=== PATIENT | female | born 1995 | race American Indian/Alaskan Native ===

== ENCOUNTER 2016-12-22 13:12 | Emergency (ER) | payer SELFPAY ==
[2016-12-22 14:00] VITALS: BP 127/83
--- NOTE | 2016-12-22 16:35 | Emergency Department Report ---
ED General Adult HPI - General Chief complaint: Back Pain/Injury Stated complaint: BACK PAIN Time Seen by Provider: 12/22/16 15:59 Source: patient Mode of arrival: Ambulatory Limitations: No Limitations - History of Present Illness Initial comments: Patient comes into the ER today with complaints of lower back pain for the past 2 weeks. 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 Patient states she's been working the stop for approximately one month and thinks that it has something do with her pain in her back. Patient describes the pain as a tight and burning sensation from time to time. Patient denies any obvious single moment of injury. Patient denies any loss of bowel control, urinary control. Patient denies any abdominal pain. -: week(s) (2) - Related Data Previous Rx's Medication Instructions Recorded Last Taken Type Acetaminophen/Codeine 1 tab PO Q6H PRN #15 tab 08/31/14 Unknown Rx [Acetaminophen-Codeine #3 TAB] Azithromycin [Zithromax] 1 gm PO ONCE #1 packet 08/31/14 Unknown Rx Valacyclovir HCl [Valtrex] 1,000 mg PO BID #20 tablet 08/31/14 Unknown Rx metroNIDAZOLE [Flagyl] 500 mg PO TID #30 tablet 08/31/14 Unknown Rx Cyclobenzaprine HCl [Flexeril 5 MG 5 mg PO TID PRN #18 tab 12/22/16 Unknown Rx TAB] Naproxen [Naprosyn TAB] 500 mg PO BID #20 tablet 12/22/16 Unknown Rx traMADol [Ultram] 50 mg PO Q6HR PRN #20 tablet 12/22/16 Unknown Rx Allergies Allergy/AdvReac Type Severity Reaction Status Date / Time No Known Allergies Allergy Verified 08/31/14 12:18 ED Review of Systems ROS: Stated complaint: BACK PAIN Other details as noted in HPI Constitutional: denies: chills, fever Eyes: denies: eye pain, eye discharge, vision change ENT: denies: ear pain, throat pain Respiratory: denies: cough, shortness of breath, wheezing Cardiovascular: denies: chest pain, palpitations Endocrine: no symptoms reported Gastrointestinal: denies: abdominal pain, nausea, diarrhea Genitourinary: denies: urgency, dysuria, discharge Musculoskeletal: back pain, myalgia. denies: joint swelling, arthralgia Skin: denies: rash, lesions Neurological: denies: headache, weakness, paresthesias Psychiatric: denies: anxiety, depression Hematological/Lymphatic: denies: easy bleeding, easy bruising ED Past Medical Hx - Past Medical History Previous Medical History?: No - Surgical History Past Surgical History?: No - Social History Smoking Status: Never Smoker Substance Use Type: None - Medications Home Medications: Home Medications Medication Instructions Recorded Confirmed Last Taken Type Acetaminophen/Codeine 1 tab PO Q6H PRN #15 tab 08/31/14 Unknown Rx [Acetaminophen-Codeine #3 TAB] Azithromycin [Zithromax] 1 gm PO ONCE #1 packet 08/31/14 Unknown Rx Valacyclovir HCl [Valtrex] 1,000 mg PO BID #20 tablet 08/31/14 Unknown Rx metroNIDAZOLE [Flagyl] 500 mg PO TID #30 tablet 08/31/14 Unknown Rx Cyclobenzaprine HCl [Flexeril 5 MG 5 mg PO TID PRN #18 tab 12/22/16 Unknown Rx TAB] Naproxen [Naprosyn TAB] 500 mg PO BID #20 tablet 12/22/16 Unknown Rx traMADol [Ultram] 50 mg PO Q6HR PRN #20 tablet 12/22/16 Unknown Rx ED Physical Exam - General Limitations: No Limitations General appearance: alert, in no apparent distress - Head Head exam: Present: atraumatic, normocephalic - Eye Eye exam: Present: normal appearance - ENT ENT exam: Present: mucous membranes moist - Neck Neck exam: Present: normal inspection - Respiratory Respiratory exam: Present: normal lung sounds bilaterally. Absent: respiratory distress - Cardiovascular Cardiovascular Exam: Present: regular rate, normal rhythm. Absent: systolic murmur, diastolic murmur, rubs, gallop - GI/Abdominal GI/Abdominal exam: Present: soft, normal bowel sounds - Extremities Exam Extremities exam: Present: normal inspection - Back Exam Back exam: Present: normal inspection, tenderness, muscle spasm (bilateral lower lumbar muscle tightness), paraspinal tenderness. Absent: full ROM ( demented lumbar flexion secondary to pain), CVA tenderness (R), CVA tenderness ( L), vertebral tenderness - Neurological Exam Neurological exam: Present: alert, oriented X3, CN II-XII intact, normal gait, reflexes normal. Absent: motor sensory deficit - Psychiatric Psychiatric exam: Present: normal affect, normal mood - Skin Skin exam: Present: warm, dry, intact, normal color. Absent: rash ED Course Vital Signs 12/22/16 13:57 Temperature 98.7 F Pulse Rate 69 Respiratory 17 Rate Blood Pressure 127/83 O2 Sat by Pulse 100 Oximetry ED Medical Decision Making - Medical Decision Making Patient is nontoxic and hemodynamically stable. Examination and history is more consistent with muscular etiology to patient's back pain. I'll start patient on a course of medications to help relieve her symptoms but have also encouraged patient to alter her work habits. I will refer patient to orthopedics for further evaluation. Patient is in agreement treatment plan patient is stable for discharge. Critical care attestation.: If time is entered above; I have spent that time in minutes in the direct care of this critically ill patient, excluding procedure time. ED Disposition Clinical Impression: Low back pain, Lumbar spine strain Disposition: TO HOME OR SELFCARE Is pt being admited?: No Does the pt Need Aspirin: No Condition: Good Instructions: Low Back Strain (ED) Prescriptions: Cyclobenzaprine HCl [Flexeril 5 MG TAB] 5 mg PO TID PRN #18 tab PRN Reason: Muscle Spasm Naproxen [Naprosyn TAB] 500 mg PO BID #20 tablet traMADol [Ultram] 50 mg PO Q6HR PRN #20 tablet PRN Reason: Pain Referrals: PRIMARY CARE, [Primary Care Provider] - 3-5 Days TAYLOR MONTEJO MD [Staff Physician] - 3-5 Days Forms: Work/School Release Form(ED) Time of Disposition: 16:39
== END 2016-12-22 17:00 | disposition home or self-care (01) ==
LOC: ED 13:12
DX: S39.012A Strain of muscle, fascia and tendon of lower back, initial encounter (principal); X50.0XXA Overexertion from strenuous movement or load, initial encounter; X50.9XXA Other and unspecified overexertion or strenuous movements or postures, initial encounter; Y93.89 Activity, other specified; Y99.8 Other external cause status; Y92.59 Other trade areas as the place of occurrence of the external cause
CPT/HCPCS: 99282

== ENCOUNTER 2017-01-01 15:51 | Emergency (ER) | payer SELFPAY ==
[2017-01-01 21:18] LABS: Bacteria,Urine 1+ /HPF (Negative); Bilirubin,Urine NEG (Negative); Blood,Urine NEG (Negative); Ketones,Urine NEG (Negative); Leukocyte Esterase,Urine MOD (Negative); Mucus,Urine FEW /HPF; Nitrite,Urine NEG (Negative); Protein,Urine <15 mg/dL mg/dL (Negative); Urobilinogen,Urine < 2.0 mg/dL (<2.0)
[2017-01-01] MEDS ORDERED: NORCO 5/325 PO ONE (21:26)
[2017-01-01] MEDS ORDERED: TORADOL IM ONE (21:26)
[2017-01-01] MEDS ORDERED: FLEXERIL PO ONE (21:26)
--- NOTE | 2017-01-01 22:13 | Emergency Department Report ---
Entered by LETI GOMEZ, acting as scribe for TIA MARES PA. ED Back Pain/Injury HPI - General Chief Complaint: Back Pain/Injury Stated Complaint: BACK AND SHOULDER PAIN Time Seen by Provider: 01/01/17 20:18 Source: patient Limitations: No Limitations - History of Present Illness Initial Comments: 21 year old female with no significant PMHx presents to the ED with c/o lower back pain for about 2 weeks. 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 She took prescribed medication of flexeril and tramadol with minimal relief. Patient denies dsyruia, hematuria, frequency, urgency, , vaginal discharge, vaginal bleeding, no MVA accident, injury or trauma. NKDA. patient states she needs a work excuse and more days off work. MD Complaint: back pain, other (upper extermeity pain) Onset/Timin -: week(s) Similar Symptoms Previously: Yes Place: work Radiation: none Severity: mild Severity scale (0 -10): 5 Quality: sharp, aching Consistency: constant Improves With: none Worsens With: medication (Flexeril and tramadol with no relief) Context: while lifting (work related) Associated Symptoms: denies: weakness, chest pain, numbness, difficulty walking , cough, difficulty urinating, incontinence, fever/chills, constipation, headaches, abdominal pain, nausea/vomiting, rash, shortness of breath, syncope Treatments Prior to Arrival: other medications - Related Data Previous Rx's Medication Instructions Recorded Last Taken Type Acetaminophen/Codeine 1 tab PO Q6H PRN #15 tab 08/31/14 Unknown Rx [Acetaminophen-Codeine #3 TAB] Azithromycin [Zithromax] 1 gm PO ONCE #1 packet 08/31/14 Unknown Rx Valacyclovir HCl [Valtrex] 1,000 mg PO BID #20 tablet 08/31/14 Unknown Rx metroNIDAZOLE [Flagyl] 500 mg PO TID #30 tablet 08/31/14 Unknown Rx Cyclobenzaprine HCl [Flexeril 5 MG 5 mg PO TID PRN #18 tab 12/22/16 Unknown Rx TAB] Naproxen [Naprosyn TAB] 500 mg PO BID #20 tablet 12/22/16 Unknown Rx traMADol [Ultram] 50 mg PO Q6HR PRN #20 tablet 12/22/16 Unknown Rx methOCARBAMOL [Robaxin TAB] 500 mg PO BID #20 tab 01/01/17 Unknown Rx Allergies Allergy/AdvReac Type Severity Reaction Status Date / Time No Known Allergies Allergy Verified 08/31/14 12:18 ED Review of Systems Comment: All other systems reviewed and negative Constitutional: denies: chills, fever Eyes: denies: eye pain, eye discharge, vision change ENT: denies: ear pain, throat pain Respiratory: no symptoms reported Cardiovascular: denies: chest pain, palpitations Endocrine: denies: excessive sweating Gastrointestinal: denies: abdominal pain, nausea, vomiting, diarrhea, constipation Genitourinary: denies: urgency, dysuria, frequency, hematuria, discharge, abnormal menses Musculoskeletal: back pain. denies: joint swelling, arthralgia Skin: denies: rash, lesions Neurological: denies: headache, weakness, paresthesias Psychiatric: denies: anxiety, depression Hematological/Lymphatic: denies: easy bleeding ED Past Medical Hx - Past Medical History Previous Medical History?: Yes Additional medical history: PIH - Surgical History Past Surgical History?: No - Social History Smoking Status: Never Smoker Substance Use Type: None - Medications Home Medications: Home Medications Medication Instructions Recorded Confirmed Last Taken Type Acetaminophen/Codeine 1 tab PO Q6H PRN #15 tab 08/31/14 Unknown Rx [Acetaminophen-Codeine #3 TAB] Azithromycin [Zithromax] 1 gm PO ONCE #1 packet 08/31/14 Unknown Rx Valacyclovir HCl [Valtrex] 1,000 mg PO BID #20 tablet 08/31/14 Unknown Rx metroNIDAZOLE [Flagyl] 500 mg PO TID #30 tablet 08/31/14 Unknown Rx Cyclobenzaprine HCl [Flexeril 5 MG 5 mg PO TID PRN #18 tab 12/22/16 Unknown Rx TAB] Naproxen [Naprosyn TAB] 500 mg PO BID #20 tablet 12/22/16 Unknown Rx traMADol [Ultram] 50 mg PO Q6HR PRN #20 tablet 12/22/16 Unknown Rx methOCARBAMOL [Robaxin TAB] 500 mg PO BID #20 tab 01/01/17 Unknown Rx ED Physical Exam - General Limitations: No Limitations General appearance: alert, in no apparent distress - Head Head exam: Present: atraumatic, normocephalic - Eye Eye exam: Present: normal appearance, PERRL, EOMI Pupils: Present: normal accommodation. Absent: irregular - ENT ENT exam: Present: normal orophraynx, mucous membranes moist - Neck Neck exam: Present: normal inspection, full ROM. Absent: tenderness, meningismus - Respiratory Respiratory exam: Present: normal lung sounds bilaterally. Absent: respiratory distress - Cardiovascular Cardiovascular Exam: Present: regular rate, normal rhythm. Absent: systolic murmur, diastolic murmur, rubs, gallop - GI/Abdominal GI/Abdominal exam: Present: soft, normal bowel sounds. Absent: distended, tenderness, guarding, rigid, diminished bowel sounds - Speculum exam: Absent: erythema, vaginal discharge, vaginal bleeding - Extremities Exam Extremities exam: Present: normal inspection, full ROM, normal capillary refill. Absent: tenderness, pedal edema, joint swelling - Back Exam Back exam: Present: normal inspection, full ROM. Absent: tenderness, paraspinal tenderness, vertebral tenderness - Neurological Exam Neurological exam: Present: alert, oriented X3, normal gait, reflexes normal (+ 2 bilateral patellar reflexes) - Psychiatric Psychiatric exam: Present: normal affect, normal mood - Skin Skin exam: Present: warm, dry, intact, normal color. Absent: rash ED Course Vital Signs 01/01/17 17:10 Temperature 98.6 F Pulse Rate 90 Respiratory 18 Rate Blood Pressure 112/77 O2 Sat by Pulse 100 Oximetry ED Medical Decision Making - Medical Decision Making 21 year old female presents to ED with lower back pain. patient states she would like more days off work and another work excuse. patient has no significant tenderness on exam that would require imaging studies. patient has no positive UTI and negative preg test. patient is stable, neurologically intact and in no acute distress. patient is ambulatory. ED Disposition Clinical Impression: Low back pain Qualifiers: Chronicity: acute Back pain laterality: bilateral Sciatica presence: without sciatica Qualified Code(s): M54.5 - Low back pain Disposition: - TO HOME OR SELFCARE Is pt being admited?: No Does the pt Need Aspirin: No Condition: Stable Prescriptions: methOCARBAMOL [Robaxin TAB] 500 mg PO BID #20 tab Referrals: PRIMARY CARE, [Primary Care Provider] - 3-5 Days Forms: Work/School Release Form(ED) This documentation as recorded by the JASON moser PEARL,accurately reflects the service I personally performed and the decisions made by me,TIA MARES PA.
[2017-01-01 23:16] VITALS: BP 135/84
== END 2017-01-01 21:50 | disposition home or self-care (01) ==
LOC: ED 15:51
DX: M54.5 Low back pain (principal)
CPT/HCPCS: 81001; 81025; 96372; 99283; J1885